=== PATIENT | male | born 1960 | race Caucasian/White ===

== ENCOUNTER 2016-05-16 08:27 | Emergency (ER) | payer BC, OTHER ==
[~2016-05-16] VITALS: Ht 170.2 cm; Wt 95.0 kg
[~2016-05-16 08:27] MED LIST: [UNRECOGNIZED DRUG - CODE] PO
[2016-05-16 08:29] VITALS: BP 125/63; PULSE 78; RESP 20; TEMP 97.4; O2SAT 96
[2016-05-16] MEDS ORDERED: GUAI100S5 PO (09:26)
[2016-05-16] MEDS ORDERED: OSEL75 PO (09:26)
[2016-05-16] MEDS ORDERED: VENTAER INH (09:26)
--- NOTE | 2016-05-16 09:26 | PD ---
HPI Chief Complaint: Cold / Flu Symptoms Time Seen by Provider: 09:08 Travel History International Travel<30 days: No Contact w/Intl Traveler<30days: No Traveled to known affect area: No History of Present Illness HPI The patient is a 55-year-old male who presents to the emergency department for cough and cold symptoms of several days' duration. The patient complains of diffuse body aches, nasal congestion, sore throat, dry and nonproductive cough that is associated with nausea, one episode of vomiting, and diarrhea. The patient states the diarrhea has resolved, however, he continues to have a dry nonproductive cough. The patient denies any outright shortness of breath, chest pain, chills, or sweats. He has had subjective fevers at home. The patient does note several family members at home and had similar symptoms. The symptoms are moderate, there are no alleviating or exacerbating factors. PFSH Past Medical History Diminished Hearing: No Musculoskeletal: Yes (CHRONIC NECK AND BACK PAIN) Social History Alcohol Use: No Tobacco Use: No Substance Use: No Allergies-Medications (Allergen,Severity, Reaction): Coded Allergies: Ibuprofen (Verified Allergy, Mild, SWELLING- PATIENT STATES "I TOOK TOO MUCH", 05/16/16) Reported Meds & Prescriptions Reported Meds & Active Scripts Active No Active Prescriptions or Reported Medications Review of Systems Except as stated in HPI: all other systems reviewed are Neg General / Constitutional: Positive: Fever HENT: Positive: Headaches, Sore Throat, Congestion Cardiovascular: No: Chest Pain or Discomfort Respiratory: Positive: Cough, No: Shortness of Breath Gastrointestinal: Positive: Nausea, Vomiting, Diarrhea, No: Abdominal Pain Musculoskeletal: Positive: Myalgias Skin: No Rash Physical Exam Narrative GENERAL: Awake, alert, pleasant 55-year-old male who appears his stated age and is in no acute respiratory distress. SKIN: Warm and dry. HEAD: Atraumatic. Normocephalic. EYES: Pupils equal and round. No scleral icterus. No injection or drainage. ENT: No nasal bleeding or discharge. Mucous membranes pink and moist. TMs are translucent and EACs are clear. Oropharynx reveals erythema without exudate. NECK: Trachea midline. No JVD. CARDIOVASCULAR: Regular rate and rhythm. No murmur appreciated. RESPIRATORY: No accessory muscle use. Clear to auscultation. Breath sounds equal bilaterally. GASTROINTESTINAL: Abdomen soft, non-tender, nondistended. MUSCULOSKELETAL: No obvious deformities. No clubbing. No cyanosis. No edema. NEUROLOGICAL: Awake and alert. No obvious cranial nerve deficits. Motor grossly within normal limits. Normal speech. PSYCHIATRIC: Appropriate mood and affect; insight and judgment normal. Data Data Last Documented VS Vital Signs Date Time Temp Pulse Resp B/P Pulse Ox O2 Delivery O2 Flow Rate FiO2 05/16/16 09:16 Room Air 05/16/16 08:29 97.4 78 20 125/63 96 Orders Influenzae A/B Antigen (05/16/16 08:34) Albuterol-Ipratropium Neb (Duoneb Neb) (05/16/16 09:30) Lidocaine Pf 4% Neb (Lidocaine Pf 4% Neb (05/16/16 09:30) MDM Medical Decision Making Medical Screen Exam Complete: Yes Emergency Medical Condition: Yes Medical Record Reviewed: Yes Interpretation(s) Date/Time Procedure Status Source Growth 05/16/16 08:42 Influenza Types A,B Antigen ([facility]) - Final Complete Nasal Aspirate Positive For Flu A Antigen Differential Diagnosis Differential diagnosis includes influenza, viral syndrome, bronchitis, pneumonia , strep pharyngitis. Narrative Course The patient had an influenza screen which is positive for influenza A. The patient was administered one DuoNeb with lidocaine. The patient will be discharged home with cough medicine, albuterol inhaler, and Tamiflu. He is advised to use Tylenol for fever and follow-up with his primary physician. Work excuse for 3 days. Diagnosis Primary Impression: Influenza Patient Instructions: General Instructions Additional Instructions: Medications as directed. Follow up with her primary physician. Work excuse for 3 days. Tylenol as needed for pain and fever. Med/Other Pt SpecificInfo: Prescription(s) given Scripts Oseltamivir (Tamiflu)75 Mg Cap75 Mg PO BID 5 Days Ref 0 Prov:Freddy Quezada MD 05/16/16 Albuterol 18 GM Inh (Ventolin Hfa 18 GM Inh)90 Mcg/Act Aer2 Puff INH Q4H PRN ( SHORTNESS OF BREATH) #1 INHALER Ref 0 Prov:Freddy Quezada MD 05/16/16 Guaifenesin-Codeine Liq 100-10 Mg/5 Ml Soln10 Ml PO Q6H PRN (COUGH) #1 BOTTLE Ref 0 Prov:Freddy Quezada MD 05/16/16 Disposition: 01 DISCHARGE HOME Condition: Stable Freddy Quezada MD May 16, 2016 09:26
[2016-05-16] MEDS ORDERED: RESP: LIDOCAINE HCL 4% PF 5 ML NEB NEB ONE (09:30)
[2016-05-16] MEDS ORDERED: RESP: ALBUTEROL 2.5 MG/IPRATROPIUM 0.5 MG NEB (SCH) NEB ONE (09:30)
== END 2016-05-16 10:35 | disposition home or self-care (01) ==
LOC: NETRI 08:27
DX: J09.X2 Influenza due to identified novel influenza A virus with other respiratory manifestations (principal)
CPT/HCPCS: 87804; 94664; 99283

== ENCOUNTER 2016-09-21 09:58 | Emergency (ER) | payer OTHER ==
[~2016-09-21] VITALS: Ht 170.2 cm; Wt 95.0 kg
[~2016-09-21 09:58] MED LIST changes: +GUAI100S5 PO; +OSEL75 PO; +VENTAER INH; -[UNRECOGNIZED DRUG - CODE] PO
[2016-09-21 10:00] VITALS: BP 133/72; PULSE 74; RESP 20; TEMP 97.4; O2SAT 98
--- NOTE | 2016-09-21 10:15 | PD ---
HPI . cough for > 3 weeks Chief Complaint: Cold / Flu Symptoms Time Seen by Provider: 10:15 Travel History International Travel<30 days: No Contact w/Intl Traveler<30days: No Traveled to known affect area: No History of Present Illness HPI 56-year-old male with no past medical history here with complaints of a cough for greater than 3 weeks and intermittent congestion. Patient says that he works frequently and has not been able to see his primary care provider. He tells me he has been coughing and has some type of white clear-looking mucus coming up. He tells me that he sometimes has nasal drainage and if he stands in a hot shower that will come leaking out. Denies fever or chills, but says he felt warm last night. Today vital signs are within normal limits. He denies any chest pain or shortness of breath. He has no other complaints. PFSH Past Medical History Hx Anticoagulant Therapy: No Cardiovascular Problems: No Chemotherapy: No Cerebrovascular Accident: No Diabetes: No Diminished Hearing: No Musculoskeletal: Yes (CHRONIC NECK AND BACK PAIN) Respiratory: No Social History Alcohol Use: No Tobacco Use: No Substance Use: No Allergies-Medications (Allergen,Severity, Reaction): Coded Allergies: No Known Allergies (Unverified , 09/21/16) Reported Meds & Prescriptions Reported Meds & Active Scripts Active Flonase Nasal [place] (Fluticasone Nasal [place]) 50 Mcg/Act [place] 50 Mcg EACH NARE BID Ventolin Hfa 18 GM Inh (Albuterol Sulfate) 90 Mcg/Act Aer 2 Puff INH Q6H PRN Medrol Dosepak (Methylprednisolone) 4 Mg Dspk 4 Mg PO DIRECTED Per Pharmacist direction Tamiflu (Oseltamivir Phosphate) 75 Mg Cap 75 Mg PO BID 5 Days Ventolin Hfa 18 GM Inh (Albuterol Sulfate) 90 Mcg/Act Aer 2 Puff INH Q4H PRN Guaifenesin-Codeine Liq 100-10 Mg/5 Ml Soln 10 Ml PO Q6H PRN Review of Systems General / Constitutional: No: Fever Eyes: No: Visual changes HENT: Positive: Congestion, No: Headaches Cardiovascular: No: Chest Pain or Discomfort Respiratory: Positive: Cough, No: Shortness of Breath Gastrointestinal: No: Abdominal Pain Genitourinary: No: Dysuria Musculoskeletal: No: Pain Skin: No Rash Neurologic: No: Weakness Psychiatric: No: Depression Endocrine: No: Polydipsia Hematologic/Lymphatic: No: Easy Bruising Physical Exam Narrative GENERAL: AAO x 3, no acute distress, Well-nourished, well-developed patient. SKIN: Warm and dry. No visible rashes or bruising. HEAD: Normocephalic and atraumatic. EYES: No scleral icterus. No injection or drainage. ENT: No nasal drainage noted. Mucous membranes pink. Airway patent. No posterior pharynx erythema, edema or exudates. No frontal or maxillary sinus tenderness. TMs normal bilaterally. NECK: Supple, trachea midline. No JVD. No lymphadenopathy. CARDIOVASCULAR: Regular rate and rhythm without murmurs, gallops, or rubs. RESPIRATORY: Breath sounds equal bilaterally. No accessory muscle use. No rhonchi or rales. No wheezing. Dry cough heard during examination. GASTROINTESTINAL: Visual inspection normal EXTREMITIES: No cyanosis or edema. BACK: Nontender without obvious deformity. No CVA tenderness. PSYCH: AAO x 3, normal affect. Data Data Last Documented VS Vital Signs Date Time Temp Pulse Resp B/P Pulse Ox O2 Delivery O2 Flow Rate FiO2 09/21/16 10:00 97.4 74 20 133/72 98 Room Air MDM Medical Decision Making Medical Screen Exam Complete: Yes Emergency Medical Condition: Yes Medical Record Reviewed: Yes Differential Diagnosis Bronchitis, allergic rhinitis, sinusitis, less likely influenza, less likely pneumonia Narrative Course 56-year-old male here today with cough for greater than 3 weeks. I've done and examination of this appears to be a case of bronchitis. I've explained to him that I do not see any type of bacterial infection, therefore I do not recommend antibiotics. I will treat with a course of steroids and albuterol inhaler. I have also provided him with Flonase for his allergic rhinitis/nasal issues. Ultimately he will need follow-up with his primary care provider and I have discussed this with him. Patient verbalized understanding of instructions, questions were answered, and thanked me for their care. I advised them if their condition worsens, please return to the nearest emergency room for further care. Diagnosis Primary Impression: Bronchitis Additional Impression: Allergic rhinitis Qualified Code: J30.9 - Allergic rhinitis, unspecified allergic rhinitis trigger, unspecified rhinitis seasonality Patient Instructions: General Instructions Additional Instructions: As we discussed the cough can last 6-8 weeks. Take medications as prescribed. If you are a smoker, try to quit. Follow up with your primary care provider. If you develop sudden onset or worsening of shortness or breath, please go to the nearest emergency room. Please return to emergency department if your symptoms return or worsen. Follow up with your primary care provider. Take medications as prescribed. Med/Other Pt SpecificInfo: Prescription(s) given Scripts Fluticasone Nasal [place] (Flonase Nasal [place])50 Mcg/Act Spray50 Mcg EACH NARE BID #1 BOTTLE Ref 0 Prov:Haven Dover DO 09/21/16 Albuterol 18 GM Inh (Ventolin Hfa 18 GM Inh)90 Mcg/Act Aer2 Puff INH Q6H PRN ( SHORTNESS OF BREATH) #1 INHALER Ref 0 Prov:Haven Dover DO 09/21/16 Methylprednisolone Dosepak (Medrol Dosepak)4 Mg Dspk4 Mg PO DIRECTED #1 DSPK Ref 0 Per Pharmacist direction Prov:Haven Dover DO 09/21/16 Disposition: 01 DISCHARGE HOME Condition: Stable Deirdre Fuentes September 21, 2016 10:15
[2016-09-21] MEDS ORDERED: VENTAER INH (10:20)
[2016-09-21] MEDS ORDERED: FLUT1SPR5 EACH NARE (10:20)
[2016-09-21] MEDS ORDERED: MEDR4PAK PO (10:20)
== END 2016-09-21 10:20 | disposition home or self-care (01) ==
LOC: NEPK 09:58
DX: J40 Bronchitis, not specified as acute or chronic (principal); J30.9 Allergic rhinitis, unspecified
CPT/HCPCS: 99283